=== PATIENT | female | born 1970 | race Caucasian/White ===

== ENCOUNTER 2017-06-27 08:26 | Inpatient (IN) | payer OTHER ==
[2017-06-26 11:19] VITALS: BMI 38.7
[2017-06-27 09:19] LABS: #Basophils 0.1 thou/uL (0.0-0.2); #Eosinphils 0.1 thou/uL (0.0-0.7); #Lymphocytes 2.1 thou/uL (1.20-3.40); #Monocytes 0.4 thou/uL (0.11-0.59); #Neutrophils 3.7 thou/uL (1.40-6.50); %Basophils 1.1 % (0.0-1.0); %Lymphocytes 33.1 % (21.0-51.0); %Monocytes 6.3 % (0.0-10.0); Hematocrit 49.4 % (36.0-47.0); Mean Platelet Volume 6.7 fL (7.4-10.4); Red Blood Cell (RBC) Count 5.23 mill/uL (4.20-5.40); White Blood Cell (WBC) Count 6.4 thou/uL (4.8-10.8)
[2017-06-27 09:32] LABS: PTT 28.7 SEC (22.9-36.1); Prothrombin Time 13.3 SEC (12.0-14.7)
[2017-06-27 09:39] LABS: Anion Gap 14 mmol/L (10-20); BUN (Urea Nitrogen) 10 mg/dL (7.0-18.7); Calc. Creatinine Clearance 139 mL/min (70-130); Calcium 9.7 mg/dL (7.8-10.44); Carbon Dioxide 26 mmol/L (22-29); Chloride 103 mmol/L (98-107); Estimated GFR-MDRD 72
[2017-06-27] MEDS ORDERED: Thrombin 5000 UNITS/5 ML VIAL ONE (10:44)
[2017-06-27] MEDS ORDERED: Sodium Chloride 0.9% 10 ML ONE (10:44)
[2017-06-27] MEDS ORDERED: Bacitracin Zinc Ointment 30 gm TUBE ONE (10:44)
[2017-06-27] MEDS ORDERED: Scopolamine 1.5 mg/72 hour Patch ONE (11:16)
[2017-06-27] MEDS ORDERED: Midazolam HCl 2 mg/2 ml Vial ONE ×2 (11:55→16:11)
[2017-06-27] MEDS ORDERED: Fentanyl 250 MCG/5 ML VIAL ONE (11:56)
[2017-06-27] MEDS ORDERED: ePHEDrine/0.9% NaCl/PF SYRINGE 50 mg/10 ml ONE (11:59)
[2017-06-27] MEDS ORDERED: Ondansetron HCl/PF 4 MG/2 ML Vial ONE (11:59)
[2017-06-27] MEDS ORDERED: Dexamethasone 20 MG/5 ML VIAL ONE (11:59)
[2017-06-27] MEDS ORDERED: Lidocaine 2% PF 10 ML AMP (For Epidural Use) ONE (11:59)
[2017-06-27] MEDS ORDERED: Propofol 200 MG/20 ML VIAL ONE ×2 (11:59)
[2017-06-27] MEDS ORDERED: Vecuronium 10 MG VIAL ONE (11:59)
[2017-06-27] MEDS ORDERED: Glycopyrrolate 0.2 MG/ML 5 ML SYRINGE ONE (11:59)
[2017-06-27] MEDS ORDERED: Fentanyl 100 MCG/2 ML VIAL ONE ×2 (14:58→17:58)
[2017-06-27] MEDS ORDERED: Promethazine HCl 25 MG/ML VIAL SLOW IVP PRN (16:00)
[2017-06-27] MEDS ORDERED: Ondansetron HCl/PF 4 MG/2 ML Vial IVP PRN (16:00)
[2017-06-27] MEDS ORDERED: Meperidine HCl/PF 25 MG/ML VIAL SLOW IVP PRN (16:00)
[2017-06-27] MEDS ORDERED: Morphine Sulfate 2 MG/ML SYRINGE SLOW IVP PRN (16:00)
[2017-06-27] MEDS ORDERED: HYDROmorphone 2 MG/ML VIAL SLOW IVP PRN (16:00)
[2017-06-27] MEDS ORDERED: Promethazine HCl 25 MG/ML VIAL IM PRN ×2 (16:00→17:21)
[2017-06-27] MEDS ORDERED: Fleet Enema 133 ML BOT PR PRN (17:21)
[2017-06-27] MEDS ORDERED: traMADol HCl 50 MG TAB PO PRN (17:21)
[2017-06-27] MEDS ORDERED: Milk Of Magnesia 30 ML UDCUP PO PRN (17:21)
[2017-06-27] MEDS ORDERED: Acetaminophen 325 MG TAB PO PRN (17:21)
[2017-06-27] MEDS ORDERED: Mag-Al 1200 mg/1200 mg/30 ML UDCUP PO PRN (17:21)
[2017-06-27] MEDS ORDERED: Bisacodyl 10 MG SUPP PR PRN (17:21)
[2017-06-27] MEDS: Fentanyl 100 MCG/2 ML VIAL SLOW IVP PRN ×2 (20:59→23:06)
[2017-06-27] MEDS: tiZANidine HCl 4 MG TAB PO PRN (22:54)
[2017-06-28] MEDS: Fentanyl 100 MCG/2 ML VIAL SLOW IVP PRN ×3 (01:26→06:02)
[2017-06-28] MEDS: Sodium Chloride 0.9% 1,000 ML IV SCH ×3 (03:30→19:52)
[2017-06-28] MEDS: Allopurinol 300 MG TAB PO SCH (08:15)
[2017-06-28] MEDS: Ascorbic Acid 500 mg Chewable Tablet PO SCH (08:16)
[2017-06-28] MEDS: Losartan Potassium 25 MG TAB PO SCH (08:17)
[2017-06-28] MEDS: HYDROcodone/Acetaminophen 7.5/325 mg Tablet PO PRN ×4 (08:19→20:15)
[2017-06-28] MEDS: Pregabalin 75 MG CAP PO SCH ×2 (08:49→20:14)
[2017-06-28] MEDS ORDERED: FLU VACC QS2017-18 36 mo. & older 0.5 ML SYRINGE IM ONE (09:00)
--- NOTE | 2017-06-28 09:19 | PRG ---
DATE OF SERVICE: 06/28/2017 Ms. Laguna is postoperative day 1 from L5-S1 laminectomy and fusion. She is doing well. She has sheldon e left leg pain, not surprising given how erythematous and compressed both of her L5 nerves were. W e achieved satisfactory decompression at the time of surgery and as such, I suspect it is just radic ulitis. We will initiate Lyrica. She is diabetic and has been sensitive to any epidural steroids r aising her glucose. As such, we will not initiate steroids unless absolutely necessary. We will ob tain an ultrasound of the legs as she does have some calf tenderness and while good strength in her lower extremity myotomes she has a family history of DVT after surgery. We will also initiate low d ose Lovenox. Her drain output is 135 mL..
[2017-06-28] MEDS: tiZANidine HCl 4 MG TAB PO PRN (10:41)
--- NOTE | 2017-06-28 11:11 | OP ---
DATE OF PROCEDURE: 06/27/2017 OR: OR #11. WOUND TYPE: Type 1 wound. SURGEON: Shola Mireles M.D. [employer]: Jurgen Forrester PA-C. PREPROCEDURE DIAGNOSES: Grade 2 L5 on S1 spondylolisthesis with L5 bilateral spondylolysis with L5 radiculopathy with low back and bilateral leg pain. POSTPROCEDURE DIAGNOSES: Grade 2 L5 on S1 spondylolisthesis with L5 bilateral spondylolysis with L5 radiculopathy with low back and bilateral leg pain. PROCEDURE: 1. L5-S1 laminectomy with partial facetectomies and foraminotomies over the L5 nerve roots to decom press the L5 and S1 nerve roots bilaterally. 2. Placement of screw yu fixation L5-S1 bilaterally. 3. Arthrodesis in the posterolateral regions bilaterally with local bone autograft obtained from sa me incision and allograft. 4. Lumbar spine fusion L5-S1. DESCRIPTION OF PROCEDURE: After informed consent was obtained from the patient, the patient brought to OR 11. Proper patient pause and identification was carried out. She was placed under excellent general endotracheal anesthesia and positioned prone on the operating table. All appropriate point s were padded. We identified the L5-S1 dorsal spines and a linear amarilys was made. This area was johnny rilely cleansed, prepared, and draped. Proper patient pause and identification was carried out. Th e wound was then opened with a combination of sharp, monopolar and blunt dissection, L5-S1 dorsal sp neva and lamina were exposed as were portions of L4-L5 segment, although there were careful to prote ct the L4-L5 facet complex. L5-S1 laminectomies were then performed, generous foraminotomies follow ing the L5 nerve root completely out of the spine. We had excellent decompression of bilateral L5 n erve roots. However, there were quite erythematous and compressed upon finding them and we achieved excellent decompression at the conclusion. We then placed screw yu fixation at L5-S1 using anatom ic landmarks and fluoroscopy, an intraoperative CT demonstrates satisfactory placement of the hardwa re. Rods were then placed. Final tightening occurred with cap screws. The wound was copiously irr igated. We throughout the surgery maximized hemostasis and placed a small amount of DuraSeal over t he dural tube to protect it from the fusion process, although I should note there was no CSF leak. Decortication then occurred over the posterolateral regions and local bone autograft obtained from s patricia incision, allograft and BMP were placed over the posterolateral regions for augmenting of the mario mbar fusion process. We then closed the wound in anatomic layers over a drain following the sprinkl ing of vancomycin powder. The patient then emerged from anesthesia.
--- NOTE | 2017-06-28 11:16 | ULT ---
BILATERAL LOWER EXTREMITY VENOUS DOPPLER ULTRASOUND: HISTORY: Bilateral lower extremity pain, calf tenderness, and impaired mobility, recent surgery. TECHNIQUE: Color flow, Doppler and mcmanus-scale ultrasound of the deep venous system of the lower extremities was performed bilaterally. FINDINGS: There is good flow, compression, and augmentation noted in the common, common femoral, femoral, deep femoral, popliteal, posterior tibial, and greater saphenous veins on either side. IMPRESSION: No evidence of DVT in either lower extremity. POS: ALLEY
[2017-06-28] MEDS: Enoxaparin Sodium 40 MG/0.4 ML SYRINGE SC SCH (20:13)
[2017-06-28] MEDS ORDERED: Enoxaparin Sodium 30 MG/0.3 ML SYRINGE SC SCH (21:00)
[2017-06-29] MEDS: HYDROcodone/Acetaminophen 7.5/325 mg Tablet PO PRN ×6 (00:36→22:04)
[2017-06-29] MEDS: Ascorbic Acid 500 mg Chewable Tablet PO SCH (08:46)
[2017-06-29] MEDS: Allopurinol 300 MG TAB PO SCH (08:46)
[2017-06-29] MEDS: Losartan Potassium 25 MG TAB PO SCH (08:47)
[2017-06-29] MEDS: Pregabalin 75 MG CAP PO SCH ×2 (08:47→20:43)
[2017-06-29] MEDS: tiZANidine HCl 4 MG TAB PO PRN ×2 (08:52→17:09)
[2017-06-29] MEDS: Sodium Chloride 0.9% 1,000 ML IV SCH ×2 (11:33→21:52)
--- NOTE | 2017-06-29 14:00 | PRG ---
DATE OF SERVICE: 06/29/2017 SUBJECTIVE: Ms. Laguna is postoperative #2 from lumbar laminectomy and fusion. She has left leg argelia n related to radiculitis and had significant left L5 and right L5 nerve compression and I should not e while her strength is excellent throughout her lower extremity myotomes and she is ambulating, her drain output remains approximately 130 mL. As such, I would like to do 1 more day in the hospital to work on mobilization. Normally, I would use steroids to assist with postoperative radiculitis, a lthough the patient has diabetes and is very sensitive to Decadron and as such, we will continue to use Lyrica, anticipate dismissal tomorrow.
[2017-06-29] MEDS: Enoxaparin Sodium 40 MG/0.4 ML SYRINGE SC SCH (20:39)
[2017-06-30] MEDS: tiZANidine HCl 4 MG TAB PO PRN (01:34)
[2017-06-30] MEDS: HYDROcodone/Acetaminophen 7.5/325 mg Tablet PO PRN ×3 (02:06→11:17)
[2017-06-30] MEDS: Ascorbic Acid 500 mg Chewable Tablet PO SCH (08:52)
[2017-06-30] MEDS: Allopurinol 300 MG TAB PO SCH (08:52)
[2017-06-30] MEDS: Pregabalin 75 MG CAP PO SCH (08:54)
[2017-06-30] MEDS: Losartan Potassium 25 MG TAB PO SCH (08:54)
[2017-06-30 09:27] VITALS: BP 121/82; TEMP 98.1
--- NOTE | 2017-06-30 12:50 | PRG ---
DATE OF SERVICE: 06/30/2017 This is Jurgen Forrester PA-C dictating for Shola Mireles M.D. This is a subsequent inpatient progress note. Ms. Laguna is now postoperative day #3, having undergo ne a posterior lumbar laminectomy with fusion. The patient continues to progress well. Ms. Jase serrano ontinues to complain of incisional back pain and left lower extremity pain, although overall states that it may be slightly improved when compared to yesterday. She has been up walking the halls. Sh christy remains in her neurologic baseline with good strength in the bilateral lower extremities. Her inc ision is uncovered and it is consistent with anticipated wound healing without any active drainage. Her JAMIL drain was removed by me today and the procedure was tolerated well. The patient is discharg ed later today if she is in satisfactory condition and her pain is under satisfactory control. Appr opriate postoperative activity restrictions were reviewed. I would like her to wear her brace when she is up out of bed. Her was updated at bedside and the patient is pleased and doing well postoperatively.
--- NOTE | 2017-06-30 16:13 | DIS ---
This is Jurgen Forrester PA-C, dictating for Shola Mireles M.D. DATE OF ADMISSION: 06/27/2017 DATE OF DISCHARGE: 06/30/2017 DISCHARGE DIAGNOSES: Include; 1. Low back pain with lumbar radiculopathy. 2. Lumbar spondylolisthesis. 3. Lumbar spinal stenosis. HOSPITAL COURSE: Ms. Laguna was admitted on 06/27/2017 to [facility] for an elective L5-S1 laminectomy and posterior fusion with Dr. Mireles. The patient's surgery was without complication an d she recovered on the surgical unit for 3 overnights stay. The patient did have some incisional ba ck pain as well as some radicular left lower extremity pain; however, this improved over her hospita l stay. She was started on Lyrica, although due to her diabetes, was unable to be on a short term d oses of steroids. At the time of discharge, her drain was removed without difficulty and her pain w as under satisfactory control. Appropriate outpatient followup appointments were scheduled and she was educated on how to wear her LSO brace. Am[facility] questions and concerns and she again understands to follow up with our office on an outpatient basis. She is pleased with her outcome postoperatively.
== END 2017-06-30 11:55 | disposition home or self-care (01) | DRG 460 ==
LOC: SURG A 08:26 → EDSTATUS 14:56 → SJJU 19:26
PROVIDERS: ADMIT Surgery; ATTEND Surgery
PROC: 0SG3071 Fusion of Lumbosacral Joint with Autologous Tissue Substitute, Posterior Approach, Posterior Column, Open Approach (ICD-10-PCS; principal; 2017-06-27)
PROC: 01NB0ZZ Release Lumbar Nerve, Open Approach (ICD-10-PCS; 2017-06-27)
PROC: 0SB40ZZ Excision of Lumbosacral Disc, Open Approach (ICD-10-PCS; 2017-06-27)
PROC: 8E0WXBF Computer Assisted Procedure of Trunk Region, With Fluoroscopy (ICD-10-PCS; 2017-06-27)
DX: M43.16 Spondylolisthesis, lumbar region (principal); I10 Essential (primary) hypertension; M54.16 Radiculopathy, lumbar region; M48.061 Spinal stenosis, lumbar region without neurogenic claudication; E11.9 Type 2 diabetes mellitus without complications; M19.90 Unspecified osteoarthritis, unspecified site; Z88.5 Allergy status to narcotic agent
CPT/HCPCS: 36415; 76001; 80048; 85025; 85610; 85730; 93005; 93010; 93970; 96374; A4216; C1713; C1768; J1100; J1170; J1650; J2001; J2250; J2405; J2550; J2704; J3010; J3370; J3490

== ENCOUNTER 2017-09-25 09:55 | Outpatient (CLI) | payer OTHER ==
--- NOTE | 2017-09-25 12:00 | RAD ---
LUMBAR SPINE SERIES 2-3 VIEW SERIES: INDICATION: Lumbar spine stenosis. FINDINGS: There is multilevel end plate degenerative change. There is hardware fixation from posterior approac h spanning the L5 and S1 level with grade II spondylosis, grossly stable to prior radiographs 10/19/16. There are 2 pedicle screws at the L5 and S1 level conjoined by bilateral vertical interconnecting r ods. Screw of the L5 level does traverse cephalad to the vertebral body overlying the inferior disk space. IMPRESSION: Postoperative lumbosacral spine with persistent grade II spondylolisthesis. One of the L5 pedicle sc rews does traverse cephalad to the L5 vertebral body overlying the inferior aspect of the L4-5 disk s pace. POS: ALLEY
== END 2017-09-25 09:56 | disposition home or self-care (01) ==
LOC: TBSIIMAG 09:55
PROVIDERS: ATTEND Surgery
DX: M48.061 Spinal stenosis, lumbar region without neurogenic claudication (principal); M43.17 Spondylolisthesis, lumbosacral region; Z98.1 Arthrodesis status
CPT/HCPCS: 72100

== ENCOUNTER 2021-04-05 15:26 | Outpatient (CLI) | payer OTHER | END 2021-04-05 15:27 | disposition home or self-care (01) | LOC: SCSMRI 15:26 | PROVIDERS: ATTEND Family Medicine | DX: M25.561 Pain in right knee (principal); M17.11 Unilateral primary osteoarthritis, right knee; M23.91 Unspecified internal derangement of right knee ==

== ENCOUNTER 2022-02-19 12:45 | Outpatient (CLI) | payer OTHER | END 2022-02-19 12:46 | disposition home or self-care (01) | LOC: BICMRI 12:45 | PROVIDERS: ATTEND Nurse Practitioner Family | DX: M47.24 Other spondylosis with radiculopathy, thoracic region (principal); M51.24 Other intervertebral disc displacement, thoracic region; M48.04 Spinal stenosis, thoracic region | CPT/HCPCS: 72146 ==